=== PATIENT | female | born 1960 | race Caucasian/White ===

== ENCOUNTER 2020-12-08 07:55 | Day surgery (SDC) | payer MEDICAID ==
[~2020-12-08] VITALS: Ht 144.8 cm; Wt 88.6 kg
[~2020-12-08 07:55] MED LIST: CLIN-97 PO; ESTRADIOL 1 MG PO; FENO134C9 PO; FEXO-124 PO; HYDR-4353 PO; LORA1TAB PO; MEDR2.5T7 PO; METO100T14 PO; NAPR-996 PO; PANT-47 PO; SUMA25TA35 PO; TRAM50TA2 PO
[2020-12-08 08:07] VITALS: BP 152/89
[2020-12-08] MEDS ORDERED: fentaNYL/PF 50MCG/1 ML 2ML syringe ONE (08:07)
[2020-12-08] MEDS ORDERED: MIDAZolam 1 MG/ML 5ML VIAL ONE (08:07)
[2020-12-08] MEDS ORDERED: LIDOcaine Viscous 15ml cup ONE (08:07)
[2020-12-08 09:34] VITALS: BP 129/78
[2020-12-08 09:44] VITALS: BP 126/66
[2020-12-08 09:54] VITALS: BP 118/76
[2020-12-08 10:04] VITALS: BP 132/71
== END 2020-12-08 10:11 | disposition home or self-care (01) ==
LOC: GI LAB 07:55
PROVIDERS: ATTEND Internal Medicine Gastroenterology
DX: R13.10 Dysphagia, unspecified (principal); K80.20 Calculus of gallbladder without cholecystitis without obstruction; K22.8 Other specified diseases of esophagus; K29.70 Gastritis, unspecified, without bleeding; I10 Essential (primary) hypertension; E66.9 Obesity, unspecified; Z68.41 Body mass index [BMI] 40.0-44.9, adult; Z88.1 Allergy status to other antibiotic agents; Z88.8 Allergy status to other drugs, medicaments and biological substances; Z88.2 Allergy status to sulfonamides; Z87.891 Personal history of nicotine dependence; Z86.73 Personal history of transient ischemic attack (TIA), and cerebral infarction without residual deficits; Z86.19 Personal history of other infectious and parasitic diseases; Z79.899 Other long term (current) drug therapy
CPT/HCPCS: 43239; 99152; J2250; J3010; J7040; Z7512; A4620

== ENCOUNTER 2021-08-17 10:07 | Day surgery (SDC) | payer MEDICAID ==
[~2021-08-17] VITALS: Ht 144.8 cm; Wt 95.9 kg
[~2021-08-17 10:07] MED LIST changes: -CLIN-97 PO; +FENO134C18 PO; -FENO134C9 PO; -FEXO-124 PO; +FEXO-271 PO
[2021-08-17 10:20] VITALS: BP 149/85
[2021-08-17] MEDS ORDERED: fentaNYL/PF 50MCG/1 ML 2ML syringe ONE (10:59)
[2021-08-17] MEDS ORDERED: MIDAZolam 1 MG/ML 5ML VIAL ONE (10:59)
[2021-08-17 11:30] VITALS: BP 135/80
[2021-08-17 11:40] VITALS: BP 110/84
[2021-08-17 11:50] VITALS: BP 121/78
[2021-08-17 12:00] VITALS: BP 108/63
== END 2021-08-17 12:10 | disposition home or self-care (01) ==
LOC: GI LAB 10:07
PROVIDERS: ATTEND Internal Medicine Gastroenterology
DX: K92.1 Melena (principal); K63.5 Polyp of colon; K62.1 Rectal polyp; K64.8 Other hemorrhoids; J45.909 Unspecified asthma, uncomplicated; I10 Essential (primary) hypertension; G43.909 Migraine, unspecified, not intractable, without status migrainosus; Z79.899 Other long term (current) drug therapy
CPT/HCPCS: 45380; 45385; 99152; 99153; C1773; J2250; J3010; J7030; Z7512; A4620